=== PATIENT | female | born 1965 | race Caucasian/White ===

== ENCOUNTER 2018-04-28 08:33 | Outpatient (CLI) | payer BC ==
--- NOTE | 2018-05-01 09:47 | Mammography Report ---
Reason: SCREENING MAMMO Procedure Date: 04/28/2018 Accession Number: [id number] / [id number] Procedure: MGN - Screening Mammo Dig Bilat CPT Code: FULL RESULT: EXAM: Screening Mammo Dig Bilat DATE: 04/28/2018 8:59 AM CLINICAL HISTORY: Screening encounter. History of benign left breast biopsy. TECHNIQUE: Bilateral CC, laterally exaggerated CC, MLO views were obtained. COMPARISON: This examination is a new baseline as the most recent mammograms were performed at an outside institution in 2006 and are not available. FINDINGS: The breasts demonstrate heterogeneously dense fibroglandular parenchyma bilaterally. Typically benign vascular calcifications are seen bilaterally. No suspicious masses, clustered microcalcifications, or regions of architectural distortion are identified. IMPRESSION: Benign findings RECOMMENDATION: Routine annual screening unless otherwise clinically indicated. BIRADS CATEGORY 2: Benign findings STANDARD QUALIFYING STATEMENTS: 1. This examination was reviewed with the aid of Computer-Aided Detection (CAD). 2. A negative or benign imaging report should not preclude biopsy if clinically suspicious findings are present. 3. Dense breasts may obscure an underlying neoplasm. 4. This examination was reviewed without the aid of 3D breast imaging (tomosynthesis).
== END 2018-04-28 08:34 | disposition home or self-care (01) ==
LOC: DI.N 08:33
PROVIDERS: ATTEND Physician Assistant
DX: Z12.31 Encounter for screening mammogram for malignant neoplasm of breast (principal)
CPT/HCPCS: 77067

== ENCOUNTER 2020-08-22 14:07 | Outpatient (CLI) | payer BC ==
--- NOTE | 2020-08-22 16:24 | XRAY Report ---
PROCEDURE: Elbow 2 View RT INDICATIONS: RIGHT ELBOW PAIN TECHNIQUE: 2 views of the elbow were acquired. COMPARISON: None. FINDINGS: Bones: No fractures or dislocations. No suspicious bony lesions. Question of small coronoid proces s spur. Soft tissues: No elbow joint effusion. No suspicious soft tissue calcifications. IMPRESSION: No fracture or dislocation. No joint effusion. Suspect mild DJD. Reviewed by: Jt De Oliveira MD on 08/22/2020 4:23 PM PDT Approved by: Jt De Oliveira MD on 08/22/2020 4:23 PM PDT Station ID: [id number]
== END 2020-08-22 14:08 | disposition home or self-care (01) ==
LOC: DI.N 14:07
PROVIDERS: ATTEND Physician Assistant
DX: M25.521 Pain in right elbow (principal); M79.621 Pain in right upper arm

== ENCOUNTER 2021-12-28 08:00 | Outpatient (CLI) | payer BC ==
--- NOTE | 2021-12-28 10:03 | XRAY Report ---
PROCEDURE: Foot 3 View LT INDICATIONS: TOE FRACTURE TECHNIQUE: 3 views of the foot were acquired. COMPARISON: 12/01/2021 FINDINGS: Bones: There is a mildly displaced fracture of the distal phalanx of the great toe, with mild blurri ng along the fracture line. No new fractures are seen. No suspicious lytic or blastic lesions are seen. Mild generalized degene rative changes are seen. Soft tissues: No tibiotalar joint effusion. Achilles tendon appears normal. IMPRESSION: Mild interval healing changes of the distal phalanx of the great toe. Reviewed by: Mauricio Art MD on 12/28/2021 10:01 AM PDT Approved by: Mauricio Art MD on 12/28/2021 10:01 AM PDT Station ID: [id number]
== END 2021-12-28 23:59 | disposition home or self-care (01) ==
LOC: DI.WOS 08:00
PROVIDERS: ATTEND Physician Assistant
DX: S92.422D Displaced fracture of distal phalanx of left great toe, subsequent encounter for fracture with routine healing (principal)

== ENCOUNTER 2022-10-13 15:36 | Outpatient (CLI) | payer BC ==
--- NOTE | 2022-10-14 11:22 | Mammography Report ---
BILATERAL DIGITAL SCREENING MAMMOGRAM 3D/2D: 10/13/2022 CLINICAL: Routine screening. Comparison is made to exams dated: 08/10/2006 mammogram - [facility] and 06/28/2017 mammog duy - [facility]. There are scattered areas of fibroglandular density in both breasts (category b / 25%-50% glandular t issue). No significant masses, calcifications, or other findings are seen in either breast. There has been no significant interval change. IMPRESSION: NEGATIVE There is no mammographic evidence of malignancy. A 1 year screening mammogram is recommended. Based on the Tyrer Cuzick model (a risk assessment model) the patients lifetime risk is 4.9% and her 10 year risk is 1.9%. According to the ACR, ACS, and NCCN guidelines, an annual breast MRI exam maximilian g with mammogram is recommended if the patients lifetime risk is 20% or greater. This exam was interpreted at Station ID: [id number]. NOTE: For mammograms, a report in lay terms will be sent to the patient. Approximately 15% of breast malignancies will not be visualized mammographically. In the management of a palpable breast mass, a negative mammogram must not discourage biopsy of a clinically suspicious lesion. Electronically Signed By: Rosalba orellana/ben:10/14/2022 08:39:55 letter sent: No_Letter ACR BI-RADS Category 1: Negative 3341F PARENCHYMAL PATTERN: (A) - The breast(s) demonstrate(s) scattered fibroglandular densities. BI-RADS CATEGORY: (1) - 1 Mammogram [id number] 1 year screening LATERALITY: (B)
== END 2022-10-13 15:37 | disposition home or self-care (01) ==
LOC: DI.N 15:36
PROVIDERS: ATTEND Physician Assistant
DX: Z12.31 Encounter for screening mammogram for malignant neoplasm of breast (principal)